=== PATIENT | male | born 1970 ===

== ENCOUNTER 2017-08-18 11:39 | Emergency (ER) | payer MEDICARE ==
[2017-08-18 11:39] VITALS: BMI 39.0
[2017-08-18 11:55] VITALS: RESP 18; TEMP 98.8
[2017-08-18] MEDS ORDERED: Lidocaine 2% Inj (20ml) INFIL ONE (12:09)
--- NOTE | 2017-08-18 12:14 | C.PDOC ---
History Of Present Illness 08/18/2017 Serge Henson is a 47 y/o male, who presents to the ED complaining of a bug bite that he got one week ago on his left forearm. Patient reports the bite has become more red and swollen prompting ED visit for evaluation. Patient denies fever, shortness of breath, vomiting, numbness, weakness, or other complaints. Time Seen by Provider: 08/18/17 12:02 Chief Complaint (Nursing): Abnormal Skin Integrity History Per: Patient History/Exam Limitations: no limitations Onset/Duration Of Symptoms: Days (one week ago) Current Symptoms Are (Timing): Worse Location Of Injury: Left: Forearm (red and swollen bug bite) Quality Of Symptoms: Swollen Past Medical History Reviewed: Historical Data, Nursing Documentation, Vital Signs Vital Signs: Last Vital Signs Temp 98.8 F 08/18/17 11:51 Pulse 72 08/18/17 13:58 Resp 18 08/18/17 13:58 BP 112/72 08/18/17 13:58 Pulse Ox 100 08/18/17 14:05 - Medical History PMH: HTN Surgical History: Appendectomy - [facility] Procedures INJECT/INFUSE NEC (01/17/05) Family History: States: Unknown Family Hx - Social History Hx Alcohol Use: No Hx Substance Use: No - Immunization History Hx Tetanus Toxoid Vaccination: No Hx Influenza Vaccination: No Hx Pneumococcal Vaccination: No Review Of Systems Constitutional: Negative for: Fever Respiratory: Negative for: Shortness of Breath Gastrointestinal: Negative for: Vomiting Skin: Positive for: Other (bug bite on left forearm. has gradually become red and swollen) Neurological: Negative for: Headache Physical Exam - Physical Exam Appears: Well, Non-toxic, No Acute Distress Skin: Other (3cm area of tender fluctuant mass and erythema to the left forearm) Head: Atraumatic, Normacephalic Respiratory: Normal Breath Sounds Gastrointestinal/Abdominal: Normal Exam Neurological/Psych: Oriented x3, Normal Speech Gait: Steady ED Course And Treatment O2 Sat by Pulse Oximetry: 100 (room air) Pulse Ox Interpretation: Normal - Incision & Drainage Of Abscess Anesthesia: Lidocaine 2% Prep Used: Sterile Water, Betadine Procedure: Incised W/Scalpel Blade#: (11), Drained Pus (performed by ERIK Trejo), Irrigated Cavity W/Saline, Probed To Break Up Loculations, Packed W/Gauze, Cultures Obtained And Sent To Lab Medical Decision Making Medical Decision Makin08/18/2017 Impression: 47 y/o male with 3cm area of tender fluctuant mass with erythema on left forearm. Possible abscess vs. foreign body Plan: -- Lidocaine -- Forearm (left) x-ray -- Reassess and disposition Progress Notes: 08/18/2017 13:10 Left forearm x-ray: Creator : Go Koehler MD Findings: Prominent soft tissue swelling at the level of the left forearm. No evidence of discrete radiopaque foreign body. Visualized osseous structures are grossly preserved. Impression: Prominent soft tissue swelling at the level of the left forearm. No evidence of discrete radiopaque foreign body. Will I&D. Disposition - Disposition Referrals: [facility] [Outside] Disposition: HOME/ ROUTINE Disposition Time: 14:03 Condition: GOOD Additional Instructions: COME BACK IN 2 DAYS FOR WOUND CHECK AND PACKING REMOVAL. Follow up with the medical doctor within 1-2 days. Return if worsened. Prescriptions: Cephalexin [cephalexin] 500 mg PO BID #19 cap Sulfamethoxazole/Trimethoprim [Bactrim DS 800 mg-160 mg] 1 tab PO BID #19 tab Instructions: Abscess (ED) Forms: [facility] ([place]) - Clinical Impression Clinical Impression: Abscess - Scribe Statement The provider has reviewed the documentation as recorded by the Scribe 08/18/2017 Scribe Attestation: Candie Loomis MD Scribe Attestation: All medical record entries made by the Scribe were at my direction and personally dictated by me. I have reviewed the chart and agree that the record accurately reflects my personal performance of the history, physical exam, medical decision making, and the department course for this patient. I have also personally directed, reviewed, and agree with the discharge instructions and disposition.
[2017-08-18] MEDS ORDERED: Lidocaine 2% Inj (20ml) ONE (12:15)
--- NOTE | 2017-08-18 13:08 | RAD ---
Left forearm two views History: Swelling. Comparison: None available. Findings: Prominent soft tissue swelling at the level of the left forearm. No evidence of discrete radiopaque foreign body. Visualized osseous structures are grossly preserved. Impression: Prominent soft tissue swelling at the level of the left forearm. No evidence of discrete radiopaque foreign body.
[2017-08-18] MEDS ORDERED: Tmp-Smz 800 mg-160 mg DS Tab PO STA (13:47)
[2017-08-18] MEDS ORDERED: Tmp-Smz 800 mg-160 mg DS Tab ONE (13:54)
[2017-08-18 13:58] VITALS: BP 112/72; PULSE 72
[2017-08-18 14:06] VITALS: O2SAT 100
== END 2017-08-18 14:13 | disposition home or self-care (01) ==
LOC: C.ER 11:39
DX: L02.414 Cutaneous abscess of left upper limb (principal)

== ENCOUNTER 2017-08-20 17:24 | Emergency (ER) | payer MEDICARE ==
[2017-08-20 17:25] VITALS: BMI 39.0
[2017-08-20 17:59] VITALS: TEMP 98.4
--- NOTE | 2017-08-20 20:12 | C.PDOC ---
History Of Present Illness 47 year old male presents to the ED for evaluation of wound to left forearm. Patient was seen in ED two days prior for infected insect bite on left arm. He notes he is compliant with antibiotics and denies any complaints at this time. Time Seen by Provider: 08/20/17 19:23 Chief Complaint (Nursing): Wound Check History Per: Patient History/Exam Limitations: no limitations Onset/Duration Of Symptoms: Days Ago (2 days ) Current Symptoms Are (Timing): Still Present Location Of Injury: Left: Forearm Quality Of Symptoms: denies: Draining Recent travel outside of the [place]: No Additional History Per: Prior Records Past Medical History Reviewed: Historical Data, Nursing Documentation, Vital Signs Vital Signs: Last Vital Signs Temp 98.4 F 08/20/17 17:57 Pulse 68 08/20/17 20:14 Resp 18 08/20/17 20:14 BP 118/65 08/20/17 20:14 Pulse Ox 100 08/21/17 03:21 - Medical History PMH: HTN Surgical History: Appendectomy - [facility] Procedures INJECT/INFUSE NEC (01/17/05) Family History: States: Unknown Family Hx - Social History Hx Alcohol Use: No Hx Substance Use: No - Immunization History Hx Tetanus Toxoid Vaccination: No Hx Influenza Vaccination: No Hx Pneumococcal Vaccination: No Review Of Systems Constitutional: Negative for: Fever, Chills Skin: Positive for: Other (wound to left arm ) Neurological: Negative for: Weakness, Numbness Physical Exam - Physical Exam Appears: Non-toxic, No Acute Distress Skin: Warm, Dry, Other (small open lesion to anterior aspect of left forearm with minimal localized induration. No warmth, fluctuance, or drainage. ) Head: Atraumatic, Normacephalic Eye(s): bilateral: Normal Inspection, PERRL, EOMI Neck: Supple Respiratory: Normal Breath Sounds Extremity: Normal ROM, Capillary Refill (good capillary refill, less than two seconds ), No Deformity, No Swelling Pulses: Left Radial: Normal, Right Radial: Normal Neurological/Psych: Oriented x3 ED Course And Treatment O2 Sat by Pulse Oximetry: 100 (RA) Pulse Ox Interpretation: Normal Progress Note: Wound was irrigated and bacitracin dressing was applied. Wound culture was perfomed on first visit two days prior that was positive for MRSA. Patient is on bactrim currently that is sensitive to MRSA. Patient suggested to continue with bactrim and wound care instructions were given. Pt understands to return to ER at the earliest signs of worsening infection Reassessment Condition: Improved Disposition Counseled Patient/Family Regarding: Diagnosis, Need For Followup - Disposition Referrals: [facility] ([place]) [facility] [Outside] [facility] [Outside] Disposition: HOME/ ROUTINE Disposition Time: 20:09 Condition: STABLE Additional Instructions: Please follow up with clinic in 2-3 days Continue all antibiotics as prescribed Return to ER if worse Instructions: Abscess (ED) Forms: [facility] ([place]) (Sammarinese) Print Language: GREENLANDIC - Clinical Impression Clinical Impression: Infected insect bite, Visit for wound check - PA / INFO SPECIALIST / Resident Statement MD/DO has reviewed & agrees with the documentation as recorded. - Scribe Statement The provider has reviewed the documentation as recorded by the Scribe Malathi Watson All medical record entries made by the Jakeibchristel were at my direction and personally dictated by me. I have reviewed the chart and agree that the record accurately reflects my personal performance of the history, physical exam, medical decision making, and the department course for this patient. I have also personally directed, reviewed, and agree with the discharge instructions and disposition.
[2017-08-20 20:15] VITALS: BP 118/65; PULSE 68; RESP 18
[2017-08-21 00:23] VITALS: O2SAT 100
== END 2017-08-20 20:20 | disposition home or self-care (01) ==
LOC: C.ER 17:24
DX: S50.862D Insect bite (nonvenomous) of left forearm, subsequent encounter (principal); W57.XXXD Bitten or stung by nonvenomous insect and other nonvenomous arthropods, subsequent encounter